=== PATIENT | female | born 1940 | race Caucasian/White ===

== ENCOUNTER → 2017-04-27 | Outpatient (CLI) | payer MEDICARE, OTHER ==
[2016-05-27 19:51] VITALS: BP 157/85
--- NOTE | 2017-04-27 09:18 | KCIC ---
Bone mineral density exam History: Postmenopausal Comparison: 03/12/2012 Findings: Bone mineral density examination utilizing DEXA was performed. Left hip bone mineral density of 0.962 g/cm2 corresponds with a T score 0.2, Z score 2.0. Compared with the previous exam, there has been -5.6% decrease. The bone mineral density of the lumbar spine was 1.004 g/cm2 which corresponds with a T-score of -2.4, Z score 2.0. Compared with the previous exam, there has been 4.7% increase. . The age matched Z-score is . By World Congress on Osteoporosis criteria, a T score of 0 to-1 SD is considered to be within normal limits. A T score of -1 to -2.5 SD is considered osteopenia. A T score less than -2.5 SD is considered osteoporosis Impression: 1. There is normal bone density of the lumbar spine although may be artificially elevated due to the presence of degenerative change and scoliosis. There is normal bone density of the left hip. Electronically signed by: Arnold Olivo MD (04/27/2017 9:14 AM) [id number]
== END | disposition home or self-care (01) ==
LOC: KCIC DEXA 08:40
PROVIDERS: ATTEND Nurse Practitioner Family
DX: M85.88 Other specified disorders of bone density and structure, other site (principal); Z78.0 Asymptomatic menopausal state
CPT/HCPCS: 77080

== ENCOUNTER → 2017-09-10 | Outpatient (CLI) | payer MEDICARE, OTHER | END | disposition home or self-care (01) | LOC: KCIC US 08:25 | DX: N63.20 Unspecified lump in the left breast, unspecified quadrant (principal); M16.0 Bilateral primary osteoarthritis of hip; G89.29 Other chronic pain | CPT/HCPCS: 73502; 76641; 77065 ==

== ENCOUNTER → 2018-04-30 | Outpatient (CLI) | payer MEDICARE, OTHER ==
[2016-05-27 19:51] VITALS: BP 157/85
--- NOTE | 2018-04-30 14:27 | KCIC ---
Bilateral digital screening mammograms with 3-D tomosynthesis: Reason for examination: Routine screening. Comparison is made to previous studies dated 04/11/2017 and 01/27/2016. Bilateral mammograms in CC and oblique projections were obtained with 2-D imaging and 3-D tomosynthesis imaging on a Siemens Inspiration unit and reviewed on the workstation. Interpretation was made with the benefit of CAD. The skin and nipples show no abnormalities. No abnormal axillary lymph nodes are seen. The breast parenchyma shows scattered fatty and fibroglandular density. (Breast density: Category B.) There are no dominant masses, suspicious calcifications or architectural distortion. Impression: No evidence of malignancy. Recommend routine screening. BI-RAD Category 1: Negative. "Our facility is accredited by the [employer] Mammography Program." This patient's information has been entered into a reminder system for the patient to be notified with the results of her examination and a target date for the next mammogram. Electronically signed by: Cora Stephens MD (04/30/2018 2:23 PM) [id number]
== END | disposition home or self-care (01) ==
LOC: KCIC MAMMO 12:22
PROVIDERS: ATTEND Family Medicine
DX: Z12.31 Encounter for screening mammogram for malignant neoplasm of breast (principal)
CPT/HCPCS: 77063; 77067

== ENCOUNTER → 2018-06-19 | Outpatient (CLI) | payer MEDICARE, OTHER ==
[2016-05-27 19:51] VITALS: BP 157/85
[~2018-06-19] MED LIST: REGADENOSON 0.4 MG/5 ML DISP.SYRIN. IV ONE
--- NOTE | 2018-06-19 09:28 | RAD ---
EXAM: Chest, 2 views. HISTORY: Difficulty breathing. COMPARISON: None. FINDINGS: 2 views of the chest are obtained. There is no infiltrate, pleural effusion or pneumothorax. The heart is normal in size. There is a moderate hiatal hernia. IMPRESSION: No acute pulmonary finding. Electronically signed by: Barbara Pate MD (06/19/2018 9:24 AM) [facility]
--- NOTE | 2018-06-19 13:56 | RAD ---
MR#: [id number] Date of Study: 06/19/2018 Ordering Physician: JOSE SOTO, Referring Physician: TUCKER SINGLETARY Tech: YOSEF Ann, ARRT (R) (N) APPROVED REPORT Test Type: Pharmacological Stress Nurse/Tech: Jeanne Sher R.N./Sarah Ghotra RN Test Indications: [place] Cardiac History: No known cardiac Medications: See Electronic Medical Record Medical History: See Electronic Medical Record Resting ECG: NSR Resting Heart Rate: 75 bpm Resting Blood Pressure: 152/74mmHg Pretest Chest Pain: No chest pain Nurse/Tech Notes S1S2, Lungs CTA Consent: The procedure was explained to the patient in lay terms. Informed consent was witnessed. Fidencio eout was entered into [employer]. History and Stress Test performed by Jeanne Sher R.N./Sarah dominguez RN Pharm. Details Pharmacologic stress testing was performed using 0.4mg per 5ml of regadenoson given intravenously ove r 7-10 seconds. Stress Symptoms No chest pain or symptoms. POST EXERCISE Reason for Termination: Infusion complete Max HR: 104 bpm Max Blood Pressure: 166/76mmHg Blood Pressure response to exercise: Normal blood pressure response during stress. Chest Pain: No. Arrhythmia: No. ST Change: No. INTERPRETATION Stress EKG Conclusion: Baseline EKG showed sinus rhythm. No ischemic changes at peak stress. No arr hythmias. Imaging Protocol IMAGE PROTOCOL: Rest Tc-99m/stress Tc-99m 1 day Rest: Stress: Viability: Radiopharm.Tc99m EhjffxhnzUp27l Sestamibi Dose11.6mCi 33.5mCi Img Date 06/19/2018 06/19/2018 Inj-Img [id number]. 60min. Rest Admin Site:Practical Nurse:LINDA Hernandez Stress Admin Site: Practical Nurse: Fabien Elliott RT (R)(N) STRESS DATA End Diast. Vol.41.0mlLVEDV index BSA24.0ml End Syst. Vol.7.0mlLVESV index BSA4.0ml Myocardial Mass80.0gEject. Xdbujyhq77.0% Stress Scores Regional WT0.00Summed WT0.00 Regional WM0.00Summed WM1.00 Study quality was good. Left Ventricular size was Normal at Rest and Stress. Lung uptake was . Left Ventricular ejection fraction is 81%. The rest and stress images show normal perfusion, normal contraction and thickening. LV Perf. Quant 17 Seg. SSS0.00 17 Seg. SRS0.00 17 Seg. SDS0.00 Stress Defect Extent (% LAD)0.00Rest Defect Extent (% LAD)0.00Rev. Defect Extent (% LAD)0.00 Stress Defect Extent (% LCX) 0.00Rest Defect Extent (% LCX)0.00Rev. Defect Extent (% LCX)0.00 Stress Defect Extent (% RCA)0.00Rest Defect Extent (% RCA)0.00Rev. Defect Extent (% RCA)0.00 Stress Defect Extent (% MARICHUY)0.00Rest Defect Extent (% MARICHUY)0.00Rev. Defect Extent (% MARICHUY)0.00 Conclusion 1. Regadenoson cardioisotope stress test did not show any evidence of ischemia or infarct. 2. Normal left ventricular systolic function with ejection fraction calculated at 81%. 3. Low risk for cardiac events. Signed by : Reginaldo Moon, Electronically Approved : 06/19/2018 13:55:04
== END | disposition home or self-care (01) ==
LOC: NM 08:30
PROVIDERS: ATTEND Family Medicine
DX: K44.9 Diaphragmatic hernia without obstruction or gangrene (principal)
CPT/HCPCS: 71046; 78452; 93017; 96374; A9500; J2785

== ENCOUNTER → 2018-07-03 | Outpatient (CLI) | payer MEDICARE, OTHER ==
[2016-05-27 19:51] VITALS: BP 157/85
--- NOTE | 2018-07-03 14:20 | RESP ---
DATE OF SERVICE: 07/03/2018 ATTENDING PHYSICIAN: Lisa Otero MD. The patient's FVC was 2.58, which is 102% predicted, FEV1 1.90, which is 101% predicted. The FEV1/FVC ratio was normal. There were no bronchodilators given. Lung volume showed a normal total lung capacity, residual volume mildly increased at 120% predicted. Diffusion capacity 120% predicted. IMPRESSION: 1. No evidence of any obstructive airway disease. 2. No bronchodilators given. 3. Lung volumes with mild air trapping. 4. Increased diffusion capacity. GORAN JACOBO MD DR: ELMO/davin JOB#: [id number] / [id number]
== END | disposition home or self-care (01) ==
LOC: PF 09:36
PROVIDERS: ATTEND Family Medicine
DX: R06.02 Shortness of breath (principal)
CPT/HCPCS: 94010; 94729

== ENCOUNTER → 2019-07-23 | Outpatient (CLI) | payer MEDICARE, OTHER ==
[2016-05-27 19:51] VITALS: BP 157/85
--- NOTE | 2019-07-23 17:00 | KCIC ---
Bilateral digital screening mammograms with 3-D tomosynthesis: Reason for examination: Routine screening. Comparison is made to previous studies dated back to 01/27/2016. Bilateral mammograms in CC and oblique projections were obtained with 2-D imaging and 3-D tomosynthesis imaging on a [employer] Inspiration unit and reviewed on the workstation. Interpretation was made with the benefit of CAD. The skin and nipples show no abnormalities. No abnormal axillary lymph nodes are seen. The breast parenchyma is predominantly fatty. (Breast density: Category A.) There are no dominant masses, suspicious calcifications or architectural distortion. Impression: No evidence of malignancy. Recommend routine screening. BI-RAD Category 1: Negative. "Our facility is accredited by the [employer] Mammography Program." This patient's information has been entered into a reminder system for the patient to be notified with the results of her examination and a target date for the next mammogram. Electronically signed by: Cora Stephens MD (07/23/2019 4:58 PM) [email or web address]
== END | disposition home or self-care (01) ==
LOC: KCIC MAMMO 13:16
PROVIDERS: ATTEND Nurse Practitioner Family
DX: Z12.31 Encounter for screening mammogram for malignant neoplasm of breast (principal)
CPT/HCPCS: 77063; 77067

== ENCOUNTER → 2020-08-06 | Outpatient (CLI) | payer MEDICARE, OTHER ==
[2016-05-27 19:51] VITALS: BP 157/85
--- NOTE | 2020-08-06 18:08 | KCIC ---
BILATERAL SCREENING MAMMOGRAM, 3-D History: Routine screening. Comparison: Bilateral mammogram July 23, 2019. Technique: MLO and CC digital tomosynthesis (3D) images obtained. Radiologist reviewed these images on dedicated workstation. Findings: Breast Tissue Density A : The breasts are almost entirely fatty. Stable tiny intramammary lymph node of the upper outer posterior left breast. There are no dominant masses, suspicious microcalcifications or architectural distortion. IMPRESSION: No mammographic evidence of malignancy. Recommend routine screening. BI-RADS category 2: Benign findings. The images were reviewed with computer-aided detection. Patient information is entered into reminder system with a target due date for the next screening [facility] mogram. Mammography is the most sensitive method for finding small breast cancers, but it does not detect the m all and is not a substitute for careful clinical examination. A negative mammogram does not negate a clinically suspicious finding and should not result in delay in biopsying a clinically suspicious a bnormality. "Our facility is accredited by the [employer] Mammography Program." Electronically signed by: Garo Silver MD (08/06/2020 6:06 PM) [email or web address]
== END ==
LOC: KCIC MAMMO 10:00
PROVIDERS: ATTEND Family Medicine
DX: Z12.31 Encounter for screening mammogram for malignant neoplasm of breast (principal)
CPT/HCPCS: 77063; 77067

== ENCOUNTER → 2021-09-27 | Outpatient (CLI) | payer MEDICARE, OTHER ==
[2016-05-27 19:51] VITALS: BP 157/85
--- NOTE | 2021-09-27 11:48 | KCIC ---
INDICATION: 80 years of age asymptomatic female patient presents for screening mammography. TECHNIQUE: Full field craniocaudal and mediolateral oblique images of both breasts were obtained usi ng digital technique with tomosynthesis and also analyzed with computer-aided detection software. COMPARISON: Prior mammographic imaging dating back to 04/11/2017. BREAST COMPOSITION: Category B: There are scattered fibroglandular densities. FINDINGS: No suspicious masses, microcalcifications or architectural distortion is present to suggest malignanc y in either breast. The visualized axillae are unremarkable. IMPRESSION: No mammographic evidence of malignancy. RECOMMENDATION: Annual screening mammography is recommended, unless clinically indicated sooner based on symptoms or change in physical exam. BIRADS 1: NEGATIVE This study was interpreted with the benefit of Computerized Aided Detection (CAD). Patient information is entered into the reminder system with a target due date for the next screening mammogram. Mammography is the most sensitive method for finding small breast cancers, but it does not detect the m all and is not a substitute for careful clinical examination. A negative mammogram does not negate a clinically suspicious finding and should not result in delay in biopsying a clinically suspicious a bnormality. "Our facility is accredited by the [employer] Mammography Program." Electronically signed by: Gaudencio Crandall DO (09/27/2021 11:45 AM) [email or web address]
== END ==
LOC: KCIC MAMMO 10:08
PROVIDERS: ATTEND Family Medicine
DX: Z12.31 Encounter for screening mammogram for malignant neoplasm of breast (principal)
CPT/HCPCS: 77063; 77067